=== PATIENT | female | born 1955 | race Caucasian/White ===

== ENCOUNTER 2016-11-06 15:28 | Emergency (ER) | payer SELFPAY ==
[~2016-11-06] VITALS: Ht 167.6 cm; Wt 81.6 kg
[~2016-11-06 15:28] MED LIST: ALBU8.5H2 IH; ASPI-605 PO; ROSU10TA PO; [UNRECOGNIZED DRUG - REMARK]; [UNRECOGNIZED DRUG - REMARK]
[2016-11-06] MEDS ORDERED: predniSONE 20 MG TABLET ONE (15:58)
[2016-11-06] MEDS ORDERED: IPRATROPIUM NEB FS 0.5 MG/2.5 ML AMPUL.NEB NEB ONE (16:00)
[2016-11-06] MEDS ORDERED: predniSONE 20 MG TABLET PO ONE (16:00)
[2016-11-06] MEDS ORDERED: ALBUTEROL FS 2.5 MG/3 ML VIAL.NEB NEB ONE (16:00)
[2016-11-06] MEDS ORDERED: ALBUTEROL FS 2.5 MG/3 ML VIAL.NEB ONE (16:05)
[2016-11-06] MEDS ORDERED: IPRATROPIUM NEB FS 0.5 MG/2.5 ML AMPUL.NEB ONE (16:05)
[2016-11-06 17:09] VITALS: BP 140/80
== END 2016-11-06 17:11 | disposition home or self-care (01) ==
LOC: ER 15:29
DX: J44.9 Chronic obstructive pulmonary disease, unspecified (principal)
CPT/HCPCS: 71010-TC; A4606; Z7610

== ENCOUNTER 2017-01-31 12:41 | Emergency (ER) | payer OTHER ==
[~2017-01-31] VITALS: Ht 170.2 cm; Wt 72.6 kg
--- NOTE | 2017-01-31 13:05 | NUR ---
PT BIB SELF C/O SOB X2 DAYS. RESPIRATIONS APPEAR EVEN AND UNLABORED. SPO2 WNL. WITH HX OF ASTHMA; USES AN ALBUTEROL RESCUE INHALER. NAD NOTED. IN ER BED 10.
[2017-01-31] MEDS ORDERED: ALBUTEROL FS 2.5 MG/3 ML VIAL.NEB NEB ONE (13:30)
[2017-01-31] MEDS ORDERED: IPRATROPIUM NEB FS 0.5 MG/2.5 ML AMPUL.NEB NEB ONE (13:30)
[2017-01-31] MEDS ORDERED: IPRATROPIUM NEB FS 0.5 MG/2.5 ML AMPUL.NEB ONE (13:44)
[2017-01-31] MEDS ORDERED: ALBUTEROL FS 2.5 MG/3 ML VIAL.NEB ONE (13:44)
--- NOTE | 2017-01-31 13:59 | NUR ---
BREATHING TX ONGOING
[2017-01-31] MEDS ORDERED: predniSONE 20 MG TABLET PO ONE (14:00)
[2017-01-31] MEDS ORDERED: predniSONE 20 MG TABLET ONE (14:07)
--- NOTE | 2017-01-31 14:13 | NUR ---
Patient discharged to home in stable condition. Written and verbal after care instructions given. Patient verbalizes understanding of instruction. NAD NOTED. RESP EVEN UNLABORED. AMBULATORY WITH STEADY GAIT.
[2017-01-31 14:14] VITALS: BP 135/72
== END 2017-01-31 14:24 | disposition home or self-care (01) ==
LOC: ER 12:44
DX: J45.909 Unspecified asthma, uncomplicated (principal); E78.5 Hyperlipidemia, unspecified; J44.9 Chronic obstructive pulmonary disease, unspecified; K21.9 Gastro-esophageal reflux disease without esophagitis; E78.00 Pure hypercholesterolemia, unspecified; M19.90 Unspecified osteoarthritis, unspecified site; F17.200 Nicotine dependence, unspecified, uncomplicated; Z79.82 Long term (current) use of aspirin
CPT/HCPCS: A4606; Z7610

== ENCOUNTER 2017-02-27 08:22 | Emergency (ER) | payer OTHER ==
[~2017-02-27] VITALS: Ht 170.2 cm; Wt 77.1 kg
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
[2017-02-27] MEDS ORDERED: HYDROCODONE/APAP 5/325MG 1 EACH TABLET PO ONE (09:00)
[2017-02-27] MEDS ORDERED: ONDANSETRON HCL 4 MG/5 ML SOLUTION PO ONE (09:00)
[2017-02-27] MEDS ORDERED: CYCLOBENZAPRINE 10 MG TABLET PO ONE (09:00)
[2017-02-27] MEDS ORDERED: CYCLOBENZAPRINE 10 MG TABLET ONE (09:11)
[2017-02-27] MEDS ORDERED: ONDANSETRON 4 MG TAB.RAPDIS ONE (09:11)
[2017-02-27] MEDS ORDERED: HYDROCODONE/APAP 5/325MG 1 EACH TABLET ONE (09:11)
[2017-02-27 10:11] VITALS: BP 129/59
--- NOTE | 2017-02-27 10:11 | NUR ---
Patient discharged to home in stable condition. Written and verbal after care instructions given. Patient verbalizes understanding of instruction.
== END 2017-02-27 10:13 | disposition home or self-care (01) ==
LOC: ER 08:24
DX: M25.511 Pain in right shoulder (principal); E78.00 Pure hypercholesterolemia, unspecified; J44.9 Chronic obstructive pulmonary disease, unspecified; K21.9 Gastro-esophageal reflux disease without esophagitis; Z79.82 Long term (current) use of aspirin; W01.0XXA Fall on same level from slipping, tripping and stumbling without subsequent striking against object, initial encounter; Y92.009 Unspecified place in unspecified non-institutional (private) residence as the place of occurrence of the external cause; Y93.89 Activity, other specified; Y99.8 Other external cause status
CPT/HCPCS: 73030-TC; A4606; Q0162; Z7610

== ENCOUNTER → 2017-09-22 | Emergency (ER) | payer OTHER ==
[~2017-09-22] VITALS: Ht 170.2 cm; Wt 74.8 kg
[~2017-09-22] MED LIST changes: -ALBU8.5H2 IH; +ALBU8.5H8 IH; +ALBUTEROL FS 2.5 MG/0.5 ML VIAL.NEB NEB ONE; +ALBUTEROL FS 2.5 MG/0.5 ML VIAL.NEB ONE
--- NOTE | 2017-09-22 23:43 | NUR ---
PT BIB FAMILY FROM HOME C/O "HARD TO BREATH RIGHT NOW AND LAST TIME I CAME IN FOR BREATHING TREATMENT". BREATHING PATTERN IS SLIGHTLY SHALLOW WITH NO WHEEZES/CRACKELS/RHONCHI HEARD BUT LUNG SOUNDS DIMINISHED. NO PAIN NOTED. SKIN IS DRY WARM AND INTACT. A/O X4 ABLE TO MAKE NEEDS KNOWN. WILL CONTINUE TO MONITOR FOR ANY CHANGES.
--- NOTE | 2017-09-23 | NUR ---
RT AT BEDSIDE FOR BREATHING TREATMENT
--- NOTE | 2017-09-23 00:15 | NUR ---
AFTER BREATHING TREATMENT PATIENT STATES "I FEEL BETTER THANK YOU" WITH LUNG SOUNDS CLEAR BILATERAL
[2017-09-23 00:34] VITALS: BP 136/59
--- NOTE | 2017-09-23 00:35 | NUR ---
Patient discharged to home in stable condition. Written and verbal after care instructions given. Patient verbalizes understanding of instruction. Pt ambulatory with a steady gait. VSS, NAD noted on DC. Pt states SOB has resolved. Denies complaint on DC.
== END | disposition home or self-care (01) ==
LOC: ER 23:18
DX: J44.9 Chronic obstructive pulmonary disease, unspecified (principal); J06.9 Acute upper respiratory infection, unspecified; K21.9 Gastro-esophageal reflux disease without esophagitis; E78.00 Pure hypercholesterolemia, unspecified; F17.200 Nicotine dependence, unspecified, uncomplicated; Z79.82 Long term (current) use of aspirin
CPT/HCPCS: 71010; 99283; A4606 ×2; Z7610

== ENCOUNTER 2017-10-26 14:57 | Emergency (ER) | payer OTHER ==
[~2017-10-26] VITALS: Ht 170.2 cm; Wt 77.1 kg
[~2017-10-26 14:57] MED LIST changes: -ALBUTEROL FS 2.5 MG/0.5 ML VIAL.NEB NEB ONE; -ALBUTEROL FS 2.5 MG/0.5 ML VIAL.NEB ONE
[2017-10-26 15:39] VITALS: BP 140/80
[2017-10-26] MEDS ORDERED: ALBUTEROL FS 2.5 MG/3 ML VIAL.NEB ONE (17:03)
[2017-10-26] MEDS ORDERED: IPRATROPIUM NEB FS 0.5 MG/2.5 ML AMPUL.NEB ONE (17:03)
[2017-10-26] MEDS ORDERED: IPRATROPIUM NEB FS 0.5 MG/2.5 ML AMPUL.NEB NEB ONE (17:30)
[2017-10-26] MEDS ORDERED: ALBUTEROL FS 2.5 MG/3 ML VIAL.NEB CONTNEB ONE (17:30)
== END 2017-10-26 18:09 | disposition home or self-care (01) ==
LOC: ER 14:59
DX: J45.909 Unspecified asthma, uncomplicated (principal); K21.9 Gastro-esophageal reflux disease without esophagitis; E78.00 Pure hypercholesterolemia, unspecified; M19.90 Unspecified osteoarthritis, unspecified site; F17.200 Nicotine dependence, unspecified, uncomplicated; Z79.82 Long term (current) use of aspirin
CPT/HCPCS: 71045-TC; A4606; Z7610

== ENCOUNTER 2017-12-13 18:34 | Emergency (ER) | payer OTHER ==
[~2017-12-13] VITALS: Ht 170.2 cm; Wt 72.6 kg
[2017-12-13 18:55] VITALS: BP 150/70
--- NOTE | 2017-12-13 19:26 | NUR ---
RT PAGED FOR THAO CUELLAR.
[2017-12-13] MEDS ORDERED: ALBUTEROL FS 2.5 MG/3 ML VIAL.NEB NEB ONE (19:30)
[2017-12-13] MEDS ORDERED: predniSONE 20 MG TABLET PO ONE (19:30)
[2017-12-13] MEDS ORDERED: IPRATROPIUM NEB FS 0.5 MG/2.5 ML AMPUL.NEB NEB ONE (19:30)
[2017-12-13] MEDS ORDERED: ALBUTEROL FS 2.5 MG/3 ML VIAL.NEB ONE (19:47)
[2017-12-13] MEDS ORDERED: IPRATROPIUM NEB FS 0.5 MG/2.5 ML AMPUL.NEB ONE (19:47)
[2017-12-13] MEDS ORDERED: predniSONE 20 MG TABLET ONE (19:50)
--- NOTE | 2017-12-13 20:18 | NUR ---
Patient discharged to home in stable condition. Written and verbal after care instructions given. Patient verbalizes understanding of instruction. pt aaox4 no acute distress noted, resp even and unlabored. ambulatory with a steady gait
== END 2017-12-13 20:23 | disposition home or self-care (01) ==
LOC: ER 18:36
DX: J44.1 Chronic obstructive pulmonary disease with (acute) exacerbation (principal); E78.00 Pure hypercholesterolemia, unspecified; K21.9 Gastro-esophageal reflux disease without esophagitis; F17.200 Nicotine dependence, unspecified, uncomplicated; M19.90 Unspecified osteoarthritis, unspecified site; Z79.82 Long term (current) use of aspirin
CPT/HCPCS: A4606; Z7610

== ENCOUNTER 2018-10-16 14:18 | Emergency (ER) | payer MEDICARE, OTHER ==
[~2018-10-16] VITALS: Ht 170.2 cm; Wt 76.2 kg
[2018-10-16 14:18] VITALS: BP 142/78
[~2018-10-16 14:18] MED LIST changes: -ROSU10TA PO; +ROSU10TA2 PO
[2018-10-16] MEDS ORDERED: IPRATROPIUM NEB FS 0.5 MG/2.5 ML AMPUL.NEB NEB ONE (14:30)
[2018-10-16] MEDS ORDERED: ALBUTEROL FS 2.5 MG/3 ML VIAL.NEB NEB ONE (14:30)
[2018-10-16] MEDS ORDERED: ALBUTEROL FS 2.5 MG/3 ML VIAL.NEB ONE (14:37)
[2018-10-16] MEDS ORDERED: IPRATROPIUM NEB FS 0.5 MG/2.5 ML AMPUL.NEB ONE (14:38)
--- NOTE | 2018-10-16 15:05 | NUR ---
Patient discharged to home in stable condition. Written and verbal after care instructions given. Patient verbalizes understanding of instruction.
== END 2018-10-16 15:04 | disposition home or self-care (01) ==
LOC: ER 14:21
DX: J45.901 Unspecified asthma with (acute) exacerbation (principal); E78.5 Hyperlipidemia, unspecified; K21.9 Gastro-esophageal reflux disease without esophagitis; F17.210 Nicotine dependence, cigarettes, uncomplicated; Z79.82 Long term (current) use of aspirin; Z79.899 Other long term (current) drug therapy
CPT/HCPCS: 94640; 99283; A4606

== ENCOUNTER 2019-01-01 12:31 | Emergency (ER) | payer MEDICARE, OTHER ==
[~2019-01-01] VITALS: Ht 170.2 cm; Wt 88.5 kg
--- NOTE | 2019-01-01 12:45 | NUR ---
PT PRESENTS WITH SOB X2 DAYS. PT WITH FAMILY PRESENT. AWAITHAYLIE LINK.
[2019-01-01] MEDS ORDERED: ALBUTEROL FS 2.5 MG/3 ML VIAL.NEB CONTNEB ONE (13:00)
[2019-01-01] MEDS ORDERED: predniSONE 20 MG TABLET PO ONE (13:00)
[2019-01-01] MEDS ORDERED: ALBUTEROL FS 2.5 MG/3 ML VIAL.NEB NEB ONE (13:00)
[2019-01-01] MEDS ORDERED: predniSONE 20 MG TABLET ONE (13:03)
[2019-01-01] MEDS ORDERED: ALBUTEROL FS 2.5 MG/3 ML VIAL.NEB ONE (13:11)
--- NOTE | 2019-01-01 13:20 | NUR ---
RT TX IN PROGRESS.
--- NOTE | 2019-01-01 13:28 | NUR ---
MEDICATION NOTES. 1X BREATHING TREATMENT CANCELLED R/T DOUBLE ORDER.
[2019-01-01 14:09] VITALS: BP 110/60
== END 2019-01-01 14:13 | disposition home or self-care (01) ==
LOC: ER 12:41
DX: J20.9 Acute bronchitis, unspecified (principal); J45.909 Unspecified asthma, uncomplicated; E78.5 Hyperlipidemia, unspecified; K21.9 Gastro-esophageal reflux disease without esophagitis; E78.00 Pure hypercholesterolemia, unspecified; F17.200 Nicotine dependence, unspecified, uncomplicated; Z79.82 Long term (current) use of aspirin
CPT/HCPCS: 71045; 93005 ×2; 94640 ×2; 99284; J7512

== ENCOUNTER 2019-03-01 15:23 | Emergency (ER) | payer MEDICARE, OTHER ==
[~2019-03-01] VITALS: Ht 170.2 cm; Wt 81.6 kg
[2019-03-01 15:23] VITALS: BP 150/79
--- NOTE | 2019-03-01 15:42 | NUR ---
DR BANSAL AT BEDSIDE FOR EVAL.
[2019-03-01] MEDS ORDERED: predniSONE 20 MG TABLET ONE (15:46)
--- NOTE | 2019-03-01 15:50 | NUR ---
RADIOLOGY AT BEDSIDE FOR CHEST XRAY.
[2019-03-01] MEDS ORDERED: IPRATROPIUM NEB FS 0.5 MG/2.5 ML AMPUL.NEB ONE (15:53)
[2019-03-01] MEDS ORDERED: ALBUTEROL FS 2.5 MG/3 ML VIAL.NEB ONE (15:53)
[2019-03-01] MEDS ORDERED: ALBUTEROL FS 2.5 MG/3 ML VIAL.NEB NEB ONE (16:00)
[2019-03-01] MEDS ORDERED: predniSONE 20 MG TABLET PO ONE (16:00)
[2019-03-01] MEDS ORDERED: IPRATROPIUM NEB FS 0.5 MG/2.5 ML AMPUL.NEB NEB ONE (16:00)
== END 2019-03-01 16:46 | disposition home or self-care (01) ==
LOC: ER 15:23
DX: J44.1 Chronic obstructive pulmonary disease with (acute) exacerbation (principal); E78.5 Hyperlipidemia, unspecified; K21.9 Gastro-esophageal reflux disease without esophagitis; E78.00 Pure hypercholesterolemia, unspecified; F17.200 Nicotine dependence, unspecified, uncomplicated; Z79.82 Long term (current) use of aspirin
CPT/HCPCS: 71045; 94640; 99283; J7512

== ENCOUNTER 2019-04-25 12:12 | Emergency (ER) | payer MEDICARE, OTHER ==
[~2019-04-25] VITALS: Ht 170.2 cm; Wt 90.7 kg
[2019-04-25 12:30] VITALS: BP 150/85
[2019-04-25] MEDS ORDERED: ALBUTEROL FS 2.5 MG/3 ML VIAL.NEB CONTNEB ONE (13:00)
[2019-04-25] MEDS ORDERED: IPRATROPIUM NEB FS 0.5 MG/2.5 ML AMPUL.NEB NEB ONE (13:00)
[2019-04-25] MEDS ORDERED: predniSONE 20 MG TABLET PO ONE (13:30)
[2019-04-25] MEDS ORDERED: predniSONE 20 MG TABLET ONE ×2 (13:38→13:46)
[2019-04-25] MEDS ORDERED: IPRATROPIUM NEB FS 0.5 MG/2.5 ML AMPUL.NEB ONE (13:47)
[2019-04-25] MEDS ORDERED: ALBUTEROL FS 2.5 MG/3 ML VIAL.NEB ONE (13:47)
--- NOTE | 2019-04-25 14:40 | NUR ---
for discharge- Patient discharged to home in stable condition. Written and verbal after care instructions given. Patient verbalizes understanding of instruction.
== END 2019-04-25 14:40 | disposition home or self-care (01) ==
LOC: ER 12:12
DX: J44.1 Chronic obstructive pulmonary disease with (acute) exacerbation (principal); K21.9 Gastro-esophageal reflux disease without esophagitis; E78.00 Pure hypercholesterolemia, unspecified; F17.200 Nicotine dependence, unspecified, uncomplicated; Z79.82 Long term (current) use of aspirin; Z79.899 Other long term (current) drug therapy
CPT/HCPCS: 71045; 94640; 99283; J7512 ×2

== ENCOUNTER 2019-07-19 13:10 | Emergency (ER) | payer MEDICARE, OTHER ==
[~2019-07-19] VITALS: Ht 170.2 cm; Wt 90.7 kg
--- NOTE | 2019-07-19 13:30 | NUR ---
WORSENING SHORTNESS OF BREATH. PATIENT A/OX4, BREATHING EVEN AND UNLABORED, NO SOB NOTED. VITALS ON THE MONITOR 97% ON ROOM AIR. KEPT COMFORTABLE. NEEDS ATTENDED.
--- NOTE | 2019-07-19 13:40 | NUR ---
AT BEDSIDE FOR EVAL.
[2019-07-19] MEDS ORDERED: ALBUTEROL FS 2.5 MG/3 ML VIAL.NEB ONE (13:51)
[2019-07-19] MEDS ORDERED: IPRATROPIUM NEB FS 0.5 MG/2.5 ML AMPUL.NEB ONE (13:52)
[2019-07-19] MEDS ORDERED: methylPREDNISolone SOD SUCC 125 MG/2ML VIAL ONE (13:54)
[2019-07-19 13:57] LABS: BASOPHILS # (AUTO) 0.1 /CMM (0.0-0.2); EOSINOPHILS % (AUTO) 1.1 % (0.0-6.0); HEMATOCRIT 35 % (33-45); HEMOGLOBIN 11.3 g/dL (11.5-14.8); LYMPHOCYTES # (AUTO) 2.9 /CMM (0.8-4.8); LYMPHOCYTES % (AUTO) 50.5 % (20.0-44.0); MEAN CORPUSCULAR HGB CONC 32 g/dl (31.0-36.0); MEAN CORPUSCULAR VOLUME 75 fL (82-100); MONOCYTES # (AUTO) 0.5 /CMM (0.1-1.30); MONOCYTES % (AUTO) 8.2 % (2.0-12.0); NEUTROPHILS # (AUTO) 2.3 /CMM (1.8-8.9); NEUTROPHILS % (AUTO) 39.2 % (43.0-81.0); PLATELET COUNT (AUTO) 251 /CMM (150-450); RED BLOOD CELL COUNT(AUTO) 4.66 MIL/uL (4.0-5.2); WHITE BLOOD COUNT (AUTO) 5.8 K/uL (4.3-11.0)
[2019-07-19] MEDS ORDERED: ALBUTEROL FS 2.5 MG/3 ML VIAL.NEB CONTNEB ONE (14:00)
[2019-07-19] MEDS ORDERED: methylPREDNISolone SOD SUCC 125 MG/2ML VIAL IV ONE (14:00)
[2019-07-19] MEDS ORDERED: IPRATROPIUM NEB FS 0.5 MG/2.5 ML AMPUL.NEB NEB ONE (14:00)
--- NOTE | 2019-07-19 14:00 | NUR ---
RT AT BEDSIDE FOR BREATHING TREATMENT.
[2019-07-19] MEDS ORDERED: BACL10TA PO (14:11)
[2019-07-19] MEDS ORDERED: FERR-68 PO (14:11)
[2019-07-19] MEDS ORDERED: OMEG1CAP6 PO (14:11)
[2019-07-19] MEDS ORDERED: ATOR10TA PO (14:11)
[2019-07-19] MEDS ORDERED: FLUT1BLS INH (14:11)
[2019-07-19] MEDS ORDERED: BIMA2.5D5 LEFTEYE (14:11)
[2019-07-19] MEDS ORDERED: ERGO500040 PO (14:11)
[2019-07-19] MEDS ORDERED: LOSA1TAB36 PO (14:11)
[2019-07-19] MEDS ORDERED: PRED5DRO17 LEFTEYE (14:14)
[2019-07-19 14:22] LABS: CALCIUM, SERUM 9.3 mg/dL (8.5-10.1); CARBON DIOXIDE 28 mmol/L (21-32); CHLORIDE 103 mmol/L (98-107); CREATININE 0.9 mg/dL (0.6-1.3); GLUCOSE 89 mg/dL (74-106); POTASSIUM 4.4 mmol/L (3.5-5.1); SODIUM SERUM 140 mmol/L (136-145); UREA NITROGEN, BLOOD 14 mg/dL (7-18)
[2019-07-19 14:34] LABS: ALANINE AMINOTRANSFERASE 20 U/L (12-78); ALBUMIN 3.5 g/dL (3.4-5.0); ALKALINE PHOSPHATASE 75 U/L (46-116); ASPARTATE AMINOTRANSFERASE 17 U/L (15-37); BILIRUBIN,DIRECT 0.1 mg/dL (0.0-0.2); BILIRUBIN,TOTAL 0.5 mg/dL (0.2-1.0)
[2019-07-19 14:37] LABS: B-TYPE NATRIURETIC PEPTIDE 62 PG/ML (0-125); TOTAL PROTEIN, SERUM 7.5 g/dL (6.4-8.2)
[2019-07-19 15:34] VITALS: BP 148/70
--- NOTE | 2019-07-19 15:34 | NUR ---
IV removed. Catheter intact and site benign. Pressure and 4x4 applied to site. No bleeding noted.Patient discharged to home in stable condition. Written and verbal after care instructions given. Patient verbalizes understanding of instruction.
== END 2019-07-19 15:34 | disposition home or self-care (01) ==
LOC: ER 13:10
DX: J45.901 Unspecified asthma with (acute) exacerbation (principal); K59.00 Constipation, unspecified; E78.5 Hyperlipidemia, unspecified; K21.9 Gastro-esophageal reflux disease without esophagitis; E78.00 Pure hypercholesterolemia, unspecified; F17.200 Nicotine dependence, unspecified, uncomplicated; Z79.82 Long term (current) use of aspirin; Z79.899 Other long term (current) drug therapy
CPT/HCPCS: 36415; 71045; 80048; 80076; 83690; 83880; 84484; 85025; 93005; 94644; 96374; 99285; J2930

== ENCOUNTER 2019-09-02 16:27 | Emergency (ER) | payer MEDICARE, OTHER ==
[~2019-09-02] VITALS: Ht 172.7 cm; Wt 91.2 kg
[~2019-09-02 16:27] MED LIST changes: +ATOR10TA PO; +BACL10TA PO; +BIMA2.5D5 LEFTEYE; +ERGO500040 PO; +FERR-68 PO; +FLUT1BLS INH; +LOSA1TAB36 PO; +OMEG1CAP6 PO; +PRED5DRO17 LEFTEYE; -ROSU10TA2 PO; -[UNRECOGNIZED DRUG - REMARK]; -[UNRECOGNIZED DRUG - REMARK]
[2019-09-02 16:37] VITALS: BP 181/82
--- NOTE | 2019-09-02 16:37 | NUR ---
PT AMBULATORY TO ER BED 02 C/O 2-3 DAYS SOB, COUGH AND CONGESTION. PT IS REQUESTING BREATHING TREATMENT. 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 PLACED ON MONITOR. AWAITING MD PALACIOS.
--- NOTE | 2019-09-02 16:40 | NUR ---
DR CATALAN AT BEDSIDE FOR EVAL.
[2019-09-02] MEDS ORDERED: IPRATROPIUM NEB FS 0.5 MG/2.5 ML AMPUL.NEB ONE (16:44)
[2019-09-02] MEDS ORDERED: ALBUTEROL FS 2.5 MG/3 ML VIAL.NEB ONE (16:44)
--- NOTE | 2019-09-02 16:45 | NUR ---
RT AT BEDSIDE FOR BREATHING TREATMENT
[2019-09-02] MEDS ORDERED: IPRATROPIUM NEB FS 0.5 MG/2.5 ML AMPUL.NEB NEB ONE (17:00)
[2019-09-02] MEDS ORDERED: ALBUTEROL FS 2.5 MG/3 ML VIAL.NEB NEB ONE (17:00)
== END 2019-09-02 17:14 | disposition home or self-care (01) ==
LOC: ER 16:27
DX: J20.9 Acute bronchitis, unspecified (principal); J45.909 Unspecified asthma, uncomplicated; I10 Essential (primary) hypertension; E78.5 Hyperlipidemia, unspecified; K21.9 Gastro-esophageal reflux disease without esophagitis; E78.00 Pure hypercholesterolemia, unspecified; F17.200 Nicotine dependence, unspecified, uncomplicated; Z79.899 Other long term (current) drug therapy; Z79.82 Long term (current) use of aspirin

== ENCOUNTER 2020-08-18 10:52 | Emergency (ER) | payer MEDICARE, OTHER ==
[~2020-08-18] VITALS: Ht 170.2 cm; Wt 83.9 kg
[2020-08-18] MEDS ORDERED: predniSONE 20 MG TABLET PO ONE (11:00)
[2020-08-18] MEDS ORDERED: IPRATROPIUM NEB FS 0.5 MG/2.5 ML AMPUL.NEB NEB ONE (11:00)
[2020-08-18] MEDS ORDERED: ALBUTEROL FS 2.5 MG/3 ML VIAL.NEB NEB ONE (11:00)
--- NOTE | 2020-08-18 11:00 | NUR ---
pt bib self c/o sob x 2 days, Hx asthma, run out of albuterol 99% on room air. vss. seen by
[2020-08-18] MEDS ORDERED: predniSONE 20 MG TABLET ONE (11:19)
--- NOTE | 2020-08-18 11:23 | NUR ---
called rt for breathing tx
[2020-08-18] MEDS ORDERED: IPRATROPIUM NEB FS 0.5 MG/2.5 ML AMPUL.NEB ONE (11:27)
[2020-08-18] MEDS ORDERED: ALBUTEROL FS 2.5 MG/0.5 ML VIAL.NEB ONE (11:27)
--- NOTE | 2020-08-18 12:08 | NUR ---
Patient discharged to home in stable condition. Written and verbal after care instructions given. Patient verbalizes understanding of instruction.
[2020-08-18 12:09] VITALS: BP 182/81
== END 2020-08-18 12:09 | disposition home or self-care (01) ==
LOC: ER 11:00
DX: J45.909 Unspecified asthma, uncomplicated (principal); K21.9 Gastro-esophageal reflux disease without esophagitis; E78.00 Pure hypercholesterolemia, unspecified; F17.200 Nicotine dependence, unspecified, uncomplicated; Z79.899 Other long term (current) drug therapy
CPT/HCPCS: 71045; 94640; 99283; J7512

== ENCOUNTER 2020-12-05 14:50 | Emergency (ER) | payer MEDICARE, OTHER ==
[~2020-12-05] VITALS: Ht 170.2 cm; Wt 81.6 kg
[2020-12-05 14:53] VITALS: BP 148/75
[2020-12-05] MEDS ORDERED: ROSU10TA29 PO (14:59)
[2020-12-05] MEDS ORDERED: DILT240C53 PO (14:59)
--- NOTE | 2020-12-05 15:00 | NUR ---
SEEN AND EXAMINED BY .
--- NOTE | 2020-12-05 15:02 | NUR ---
RT AT BEDSIDE FOR BREATHING TX.
[2020-12-05] MEDS ORDERED: predniSONE 20 MG TABLET ONE (15:16)
[2020-12-05] MEDS: predniSONE 20 MG TABLET PO ONE (15:19)
[2020-12-05] MEDS: ALBUTEROL FS 2.5 MG/3 ML VIAL.NEB NEB ONE (15:27)
[2020-12-05] MEDS: IPRATROPIUM NEB FS 0.5 MG/2.5 ML AMPUL.NEB NEB ONE (15:27)
[2020-12-05] MEDS ORDERED: ALBUTEROL FS 2.5 MG/3 ML VIAL.NEB ONE (15:28)
[2020-12-05] MEDS ORDERED: IPRATROPIUM NEB FS 0.5 MG/2.5 ML AMPUL.NEB ONE (15:29)
[2020-12-05] MEDS ORDERED: PRED20TA PO (15:56)
--- NOTE | 2020-12-05 16:03 | NUR ---
Patient discharged to home in stable condition. Written and verbal after care instructions given. Patient verbalizes understanding of instruction.
== END 2020-12-05 16:04 | disposition home or self-care (01) ==
LOC: ER 14:51
DX: J44.9 Chronic obstructive pulmonary disease, unspecified (principal); F17.210 Nicotine dependence, cigarettes, uncomplicated; I10 Essential (primary) hypertension; E78.00 Pure hypercholesterolemia, unspecified; K21.9 Gastro-esophageal reflux disease without esophagitis; Z79.899 Other long term (current) drug therapy; Z79.82 Long term (current) use of aspirin
CPT/HCPCS: 71045; 94640; 99283; 99406; J7512

== ENCOUNTER 2021-02-19 14:36 | Emergency (ER) | payer MEDICARE, OTHER ==
[~2021-02-19] VITALS: Ht 170.2 cm; Wt 82.6 kg
[~2021-02-19 14:36] MED LIST changes: -ATOR10TA PO; +DILT240C53 PO; -LOSA1TAB36 PO; +PRED20TA PO; +ROSU10TA29 PO
--- NOTE | 2021-02-19 14:50 | NUR ---
THE PATIENT IS ALERT AND ORIENTED X4. BIBS FOR C/O DIFFICULTY BREATHING X 2 DAYS. OXYGEN SATURATION LEVEL IN ROOM AIR IS AT 99%. RESPIRATION REGULAR AND UNLABORED. DENIES PAIN. ATTACHED TO THE MONITOR. WILL CONTINUE TO MONITOR THE PATIENT.
[2021-02-19] MEDS ORDERED: IPRATROPIUM NEB FS 0.5 MG/2.5 ML AMPUL.NEB ONE (15:18)
[2021-02-19] MEDS ORDERED: ALBUTEROL FS 2.5 MG/3 ML VIAL.NEB ONE (15:19)
--- NOTE | 2021-02-19 15:29 | NUR ---
PT DOES NOT WANT EKG. NOTIFIED.
[2021-02-19] MEDS ORDERED: IV NS 0.9% 1,000 ML IV ONE (15:30)
[2021-02-19] MEDS ORDERED: ALBUTEROL FS 2.5 MG/3 ML VIAL.NEB NEB ONE (15:30)
[2021-02-19] MEDS ORDERED: predniSONE 20 MG TABLET PO ONE (15:30)
[2021-02-19] MEDS ORDERED: Magnesium 1GM/D5W 100ML PREMIX 200 ML IV ONE (15:30)
[2021-02-19] MEDS ORDERED: IPRATROPIUM NEB FS 0.5 MG/2.5 ML AMPUL.NEB NEB ONE (15:30)
--- NOTE | 2021-02-19 15:40 | NUR ---
THE PATIENT REFUSED IV INSERTION, BLOOD WORK AND ANY IV MEDICATIONS. DR WALSH IS MADE AWARE.
[2021-02-19] MEDS ORDERED: predniSONE 10 MG TABLET ONE (15:41)
--- NOTE | 2021-02-19 16:19 | NUR ---
Patient does not wish to proceed with medical care recommended by Dr. Castaneda Patient given information related to possible complications, up to and including , which could occur as a result of leaving the hospital at this time. Patient verbalizes understanding of risks involved due to leaving against medical advice. Patient has signed AMA form.
[2021-02-19 16:20] VITALS: BP 131/87
== END 2021-02-19 16:20 | disposition left against medical advice (07) ==
LOC: ER 14:39
DX: J44.1 Chronic obstructive pulmonary disease with (acute) exacerbation (principal); E78.5 Hyperlipidemia, unspecified; K21.9 Gastro-esophageal reflux disease without esophagitis; E78.00 Pure hypercholesterolemia, unspecified; F17.200 Nicotine dependence, unspecified, uncomplicated; Z79.82 Long term (current) use of aspirin; Z79.899 Other long term (current) drug therapy
CPT/HCPCS: 93005; 94640; 99283; J7512; J7030

== ENCOUNTER 2021-07-13 12:09 | Emergency (ER) | payer MEDICARE, OTHER ==
[~2021-07-13] VITALS: Ht 170.2 cm; Wt 74.6 kg
[2021-07-13] MEDS ORDERED: IPRATROPIUM NEB FS 0.5 MG/2.5 ML AMPUL.NEB NEB ONE (12:30)
[2021-07-13] MEDS ORDERED: ALBUTEROL FS 2.5 MG/3 ML VIAL.NEB NEB ONE (12:30)
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
[2021-07-13] MEDS ORDERED: IPRATROPIUM NEB FS 0.5 MG/2.5 ML AMPUL.NEB ONE (12:34)
[2021-07-13] MEDS ORDERED: ALBUTEROL FS 2.5 MG/3 ML VIAL.NEB ONE (12:34)
[2021-07-13 13:22] VITALS: BP 133/80
--- NOTE | 2021-07-13 13:22 | NUR ---
Patient discharged to home in stable condition. Written and verbal after care instructions given. Patient verbalizes understanding of instruction.
== END 2021-07-13 13:22 | disposition home or self-care (01) ==
LOC: ER 12:10
DX: M25.512 Pain in left shoulder (principal); M54.50 Low back pain, unspecified; E78.5 Hyperlipidemia, unspecified; J45.909 Unspecified asthma, uncomplicated; K21.9 Gastro-esophageal reflux disease without esophagitis; E78.00 Pure hypercholesterolemia, unspecified; F17.200 Nicotine dependence, unspecified, uncomplicated; Z79.899 Other long term (current) drug therapy; Z79.82 Long term (current) use of aspirin; V49.49XA Driver injured in collision with other motor vehicles in traffic accident, initial encounter; Y93.89 Activity, other specified; Y92.413 State road as the place of occurrence of the external cause; Y99.8 Other external cause status

== ENCOUNTER 2021-10-14 10:10 | Emergency (ER) | payer MEDICARE, OTHER ==
[~2021-10-14] VITALS: Ht 170.2 cm; Wt 76.2 kg
[2021-10-14] MEDS ORDERED: TERBUTALINE SULFATE 1 MG/ML VIAL SQ ONE (10:30)
[2021-10-14] MEDS ORDERED: predniSONE 20 MG TABLET PO ONE (10:30)
[2021-10-14] MEDS ORDERED: ALBUTEROL SULFATE 8 GM HFA.AER.AD IH ONE (10:30)
--- NOTE | 2021-10-14 10:33 | NUR ---
DR WALSH AT BEDSIDE FOR CHEST XRAY.
--- NOTE | 2021-10-14 10:40 | NUR ---
RADIOLOGY AT BEDSIDE FOR CHEST XRAY.
[2021-10-14] MEDS ORDERED: TERBUTALINE SULFATE 1 MG/ML VIAL ONE (10:44)
[2021-10-14] MEDS ORDERED: predniSONE 20 MG TABLET ONE (10:44)
[2021-10-14] MEDS ORDERED: IPRATROPIUM NEB FS 0.5 MG/2.5 ML AMPUL.NEB NEB ONE (11:00)
[2021-10-14] MEDS ORDERED: ALBUTEROL FS 2.5 MG/3 ML VIAL.NEB NEB ONE (11:00)
[2021-10-14] MEDS ORDERED: AZIT250T13 PO (11:19)
[2021-10-14] MEDS ORDERED: PRED50TA PO (11:19)
[2021-10-14] MEDS ORDERED: ALBUTEROL FS 2.5 MG/3 ML VIAL.NEB ONE (11:19)
[2021-10-14] MEDS ORDERED: ALBU18HF2 INH (11:21)
--- NOTE | 2021-10-14 11:43 | NUR ---
Patient discharged to home in stable condition. Written and verbal after care instructions given. Patient verbalizes understanding of instruction.
[2021-10-14 12:00] VITALS: BP 145/86
== END 2021-10-14 12:00 | disposition home or self-care (01) ==
LOC: ER 10:11
DX: J44.1 Chronic obstructive pulmonary disease with (acute) exacerbation (principal); E78.5 Hyperlipidemia, unspecified; K21.9 Gastro-esophageal reflux disease without esophagitis; E78.00 Pure hypercholesterolemia, unspecified; F17.200 Nicotine dependence, unspecified, uncomplicated; Z79.899 Other long term (current) drug therapy; Z79.82 Long term (current) use of aspirin
CPT/HCPCS: 71045; 93005; 94640; 99283; J3105; J7512

== ENCOUNTER 2022-03-05 14:51 | Emergency (ER) | payer MEDICARE, OTHER ==
[~2022-03-05] VITALS: Ht 170.2 cm; Wt 77.1 kg
[2022-03-05 14:51] VITALS: BP 138/83
[~2022-03-05 14:51] MED LIST changes: +ALBU18HF2 INH; +AZIT250T13 PO; -PRED20TA PO; +PRED50TA PO
--- NOTE | 2022-03-05 16:50 | NUR ---
Patient eloped from facility. ER MD notified.
== END 2022-03-05 16:50 | disposition left against medical advice (07) ==
LOC: ER 14:54
DX: Z53.21 Procedure and treatment not carried out due to patient leaving prior to being seen by health care provider (principal)

== ENCOUNTER 2023-06-29 13:48 | Emergency (ER) | payer MEDICARE, OTHER ==
[~2023-06-29] VITALS: Ht 167.6 cm; Wt 72.6 kg
[2023-06-29 14:18] VITALS: BP 143/99; TEMP 98.3
[2023-06-29] MEDS ORDERED: ALBUTEROL FS 2.5 MG/3 ML VIAL.NEB CONTNEB ONE (14:30)
[2023-06-29] MEDS ORDERED: ALBUTEROL FS 2.5 MG/3 ML VIAL.NEB NEB ONE (14:30)
[2023-06-29] MEDS ORDERED: ALBUTEROL FS 2.5 MG/3 ML VIAL.NEB ONE (14:50)
[2023-06-29 14:53] VITALS: O2SAT 99
[2023-06-29 15:09] VITALS: O2SAT 100
== END 2023-06-29 15:22 | disposition home or self-care (01) ==
LOC: ER 13:57
DX: J44.9 Chronic obstructive pulmonary disease, unspecified (principal); E78.00 Pure hypercholesterolemia, unspecified; K21.9 Gastro-esophageal reflux disease without esophagitis; F17.200 Nicotine dependence, unspecified, uncomplicated; Z79.51 Long term (current) use of inhaled steroids; Z79.899 Other long term (current) drug therapy
CPT/HCPCS: 94799-TC